=== PATIENT | female | born 1970 | race Caucasian/White ===

== ENCOUNTER 2022-12-09 09:37 | Outpatient (CLI) | payer BC, SELFPAY ==
[2022-12-09 14:08] LABS: Kit Draw Collected
== END 2022-12-09 09:38 | disposition home or self-care (01) ==
LOC: ANHGOSHLAB 09:39
PROVIDERS: PCP Family Medicine; Visit Provider Nurse Practitioner Family
DX: I10 Essential (primary) hypertension (principal)
CPT/HCPCS: 36415

== ENCOUNTER 2025-10-07 02:45 | Day surgery (SDC) | payer BC, SELFPAY ==
[2025-09-26 09:59] VITALS: BMI 25.9
[2025-10-07 08:39] VITALS: BP 128/83; PULSE 67; RESP 18; TEMP 36.2; O2SAT 100
[2025-10-07] MEDS: LACTATED RINGERS 1,000 ML 150 ML IV CONT (08:46)
--- NOTE | 2025-10-07 09:05 | P.PNAN_ITS ---
Anes - Initial Pre Proc Eval Procedure: Operation Date: 10/07/25 10:00 Proposed Procedures p Screening Colonoscopy - Amos Mensah MD Date/Time: 10/07/25 09:05 Surgeon: Amos Mensah MD Pre Op Diagnosis: Family history of malignant neoplasm of digestive Patient Data Age: 54 Gender: F Height: 1.7 m Weight: 80.4 kg Last Vital Signs Temp 36.2 C L 10/07/25 08:39 Pulse 67 10/07/25 08:39 Resp 18 10/07/25 08:39 BP 128/83 10/07/25 08:39 Pulse Ox 100 10/07/25 08:39 O2 Del Method Room Air 10/07/25 08:39 Allergies Allergy/AdvReac Type Severity Reaction Status Date / Time amlodipine AdvReac Mild swelling Verified 10/07/25 08:37 in lower extremities Home Medications ?Medication ?Instructions ?Recorded ?Confirmed ?Type carvedilol 25 mg tablet 25 mg PO Q12H #180 tabs 05/0 05/1810/07/25 Rx hydrochlorothiazide 12.5 mg tablet 12.5 mg PO DAILY #9 0 tabs 03/29/25 10/07/25 Rx lisinopril 20 mg tablet 20 mg PO DAILY #90 tabs 05/0 05/1810/07/25 Rx Patient hx anesthesia problems: none Family hx anesthesia problems: none Results Review: All pre-operative results and documents have been reviewed as part of the pre- operative evaluation. 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 Cervical spinal stenosis Hyperlipidemia Hypertension Surgical History Surgical History H/O LEEP (~1999) History of breast biopsy (10/11/12) right breast--precancer/sees Dr Richey every 6 months Hx of fusion of cervical spine (10/21/18) cervical discectomy and fusion Family History Family History Father Hypertension Carcinoma of colon Malignant neoplasm of prostate Acute myocardial infarction Malignant melanoma Mother Hypertension Sibling Cerebrovascular accident Family history of diabetes mellitus in first degree relative Grandparent Carcinoma of colon maternal grandmother Family history of lung cancer maternal grandmother Social History Social History (Updated 05/30/25 @ 08:08 by PEG Nazario) Social History: Caffeine-daily Smoking status: Never smoker Second hand tobacco smoke exposure: No Alcohol intake: current Alcohol use details: Rarely 1-2 a year Substance use: never Substance use type: does not use Do You Feel Safe in your Home?: Yes Lack of Transportation: No Lack of Food: Never True Current Housing: Decline to Answer Concerned About Future Housing: Decline to Answer Difficulty Paying Gas/Electric Bills: Decline to Answer Difficulty Paying for Meds: Decline to Answer Currently Unemployed: Decline to Answer Education: Decline to Answer Difficulty w/ Childcare or Family Care: Decline to Answer Living arrangements: with family Additional living arrangements comments: Occupation/Education: occupation 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 [employer] Gender identity (if verbalized by the patient): Female Sexual Orientation (if Verbalized by the Patient): Straight or Heterosexual Agree to blood products: Yes Anes - Eval Final PreProcedure Day of Procedure 10/07/25 09:05 Patient weight: overweight Heart: regular rate and rhythm Lungs: clear to auscultation Airway: Mallampati scale class II Neurological: alert and oriented Last oral intake: >/= 8 hours ASA classification: II Emergent: no Anesthetic plan: proceed Anesthesia type and monitoring: general GIVS and standard monitoring Results Review: All pre-operative results and documents have been reviewed as part of the pre- operative evaluation. Informed Consent: The patient's anesthetic plan and its attendant risks and benefits were discussed with the patient/family/POA. Questions were solicited and answers provided to the satisfaction of the patient/family/POA.
--- NOTE | 2025-10-07 09:42 | PM.IMHP ---
H&P: HPI History of Present Illness Date/Time: 10/07/25 09:42 Chief Complaint: Family history of colon cancer Narrative: This patient has family history of colorectal cancer. Her father had colon cancer at age 63. She had a colonoscopy approximately 5 years ago. 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 Cervical spinal stenosis Hyperlipidemia Hypertension Surgical History Surgical History H/O LEEP (~1999) History of breast biopsy (10/11/12) right breast--precancer/sees Dr Richey every 6 months Hx of fusion of cervical spine (10/21/18) cervical discectomy and fusion Family History Family History Father Hypertension Carcinoma of colon Malignant neoplasm of prostate Acute myocardial infarction Malignant melanoma Mother Hypertension Sibling Cerebrovascular accident Family history of diabetes mellitus in first degree relative Grandparent Carcinoma of colon maternal grandmother Family history of lung cancer maternal grandmother Social History Social History (Updated 05/30/25 @ 08:08 by PEG Nazario) Social History: Caffeine-daily Smoking status: Never smoker Second hand tobacco smoke exposure: No Alcohol intake: current Alcohol use details: Rarely 1-2 a year Substance use: never Substance use type: does not use Do You Feel Safe in your Home?: Yes Lack of Transportation: No Lack of Food: Never True Current Housing: Decline to Answer Concerned About Future Housing: Decline to Answer Difficulty Paying Gas/Electric Bills: Decline to Answer Difficulty Paying for Meds: Decline to Answer Currently Unemployed: Decline to Answer Education: Decline to Answer Difficulty w/ Childcare or Family Care: Decline to Answer Living arrangements: with family Additional living arrangements comments: Occupation/Education: occupation 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 [employer] Gender identity (if verbalized by the patient): Female Sexual Orientation (if Verbalized by the Patient): Straight or Heterosexual Agree to blood products: Yes Meds Home Medications and Allergies Home Medications ?Medication ?Instructions ?Recorded ?Confirmed ?Type carvedilol 25 mg tablet 25 mg PO Q12H #180 tabs 03/29/25 10/07/25 Rx hydrochlorothiazide 12.5 mg tablet 12.5 mg PO DAILY #90 tabs 03/29/25 10/07/25 Rx lisinopril 20 mg tablet 20 mg PO DAILY #90 tabs 03/29/25 10/07/25 Rx Allergies Allergy/AdvReac Type Severity Reaction Status Date / Time amlodipine AdvReac Mild swelling Verified 10/07/25 08:37 in lower extremities Vital Signs Vital Signs - 24 hr 10/07/25 08:39 Temperature 97.2 F L Pulse Rate 67 Respiratory Rate 18 Blood Pressure 128/83 Pulse Oximetry 100 Oxygen Delivery Room Air Exam Const: General: cooperative and healthy appearing Resp: Effort & Inspection: normal respiratory effort and able to speak in complete sentences Auscultation: clear to auscultation bilaterally Cardio: Rate: regular rate Rhythm: regular rhythm GI: Inspection: normal to inspection GI Palp: No No hepatosplenomegaly present Auscultation: normal bowel sounds Rectal Exam: deferred Skin: General skin exam: normal color Psych: Appearance: grossly normal Mental Status: mental status grossly normal Assessment and Plan Assessment and plan (1) Family hx of colon cancer: Code(s): Z80.0 - Family history of malignant neoplasm of digestive organs Status: Acute Assessment and Plan: The patient is deemed a good candidate for the procedure. Consent signed. Will proceed.
[2025-10-07 10:05] VITALS: BP 119/70; PULSE 69; RESP 15; O2SAT 100
[2025-10-07 10:09] LABS: BEDSIDEPREGUCG Negative (Negative)
[2025-10-07 10:15] VITALS: BP 118/77; PULSE 66; RESP 22; O2SAT 100
[2025-10-07 10:25] VITALS: BP 130/79; PULSE 63; RESP 15; O2SAT 100
== END 2025-10-07 10:30 | disposition home or self-care (01) ==
PROVIDERS: PCP Family Medicine; Referring Provider Nurse Practitioner Family; Visit Provider Internal Medicine Gastroenterology
PROC: 0DJD8ZZ Inspection of Lower Intestinal Tract, Via Natural or Artificial Opening Endoscopic (ICD-10-PCS; CPT 45378; principal; 2025-10-07 10:00)
DX: Z12.11 Encounter for screening for malignant neoplasm of colon (principal); E78.5 Hyperlipidemia, unspecified; I10 Essential (primary) hypertension; M48.02 Spinal stenosis, cervical region; Z98.890 Other specified postprocedural states; Z98.1 Arthrodesis status; Z85.41 Personal history of malignant neoplasm of cervix uteri; Z80.42 Family history of malignant neoplasm of prostate; Z80.0 Family history of malignant neoplasm of digestive organs; Z80.8 Family history of malignant neoplasm of other organs or systems; Z80.1 Family history of malignant neoplasm of trachea, bronchus and lung; Z82.49 Family history of ischemic heart disease and other diseases of the circulatory system
CPT/HCPCS: 45378; J2704; J7120